=== PATIENT | male | born 1990 ===

== ENCOUNTER 2020-07-29 18:51 | Emergency (ER) | payer OTHER ==
[2020-07-29 19:40] LABS: BASOPHILS % (AUTO) 0.2 % (0.0-5.0); EOSINOPHILS % (AUTO) 2.5 % (0.0-8.0); LYMPHOCYTES % (AUTO) 32.1 % (21.0-51.0); MEAN CORPUSCULAR HEMOGLOBIN 29.9 pg (27.0-33.0); MEAN CORPUSCULAR VOLUME 87.9 fL (79-99); MONOCYTES % (AUTO) 7.3 % (3.0-13.0); NEUTROPHILS % (AUTO) 57.8 % (40.0-77.0); PLATELET COUNT (AUTO) 246 K/uL (130-400); RED BLOOD CELL COUNT(AUTO) 5.12 MIL/uL (4.50-6.20); RED CELL DISTRIBUTION WIDTH 11.9 % (11.0-15.5); WHITE BLOOD COUNT (AUTO) 8.7 K/uL (4.8-10.8)
[2020-07-29 19:58] LABS: PROTHROMBIN TIME 10.9 SEC (9.6-11.6)
[2020-07-29 20:00] LABS: PARTIAL THROMBOPLASTIN TIME 25.3 SEC (26.3-35.5)
[2020-07-29 20:23] LABS: CREATININE 0.9 mg/dL (0.5-1.5); POTASSIUM 3.7 mmol/L (3.5-5.1)
[2020-07-29 20:27] LABS: ALBUMIN 3.9 g/dL (3.5-5.0); BILIRUBIN,TOTAL 0.2 mg/dL (0.2-1.0); TOTAL PROTEIN, SERUM 7.4 g/dL (6.0-8.3)
[2020-07-29] MEDS ORDERED: CYCLOBENZAPRINE HCL 10 MG TABLET ONE (21:22)
[2020-07-29] MEDS ORDERED: PANTOPRAZOLE 40 MG/VIAL ONE (21:22)
[2020-07-29] MEDS ORDERED: KETOROLAC TROMETHAMINE 30MG/ML ONE (21:22)
[2020-07-29] MEDS ORDERED: FAMOTIDINE/PF 20 MG/2 ML VIAL IV ONE (21:23)
== END 2020-07-29 21:55 | disposition home or self-care (01) ==
LOC: EDH 18:51
DX: R07.89 Other chest pain (principal); R06.02 Shortness of breath
CPT/HCPCS: 36415; 71045; 80053; 83690; 84484; 85025; 85610; 85730; 93005; 96374; 96375; 99285; C9113; J1885; J3490